=== PATIENT | female | born 1980 | race Caucasian/White ===

== ENCOUNTER → 2017-12-29 11:09 | Outpatient (CLI) | payer OTHER, SELFPAY ==
[2018-01-04 08:22] LABS: HPV HC, High Risk Negative (Negative)
[2018-01-04 08:23] LABS: HPV Reflexed? YES, CHARGE PATIENT
== END ==
PROVIDERS: Visit Provider Obstetrics & Gynecology
DX: Z12.4 Encounter for screening for malignant neoplasm of cervix (principal)
CPT/HCPCS: 87624; 88175; G0145

== ENCOUNTER → 2018-07-20 13:43 | Outpatient (CLI) | payer OTHER, SELFPAY ==
[2018-07-24 08:58] LABS: HPV Reflexed? NOT INDICATED
== END ==
PROVIDERS: Referring Provider Obstetrics & Gynecology; Visit Provider Obstetrics & Gynecology
DX: R87.610 Atypical squamous cells of undetermined significance on cytologic smear of cervix (ASC-US) (principal)
CPT/HCPCS: 88175; G0145

== ENCOUNTER 2019-06-09 11:38 | Emergency (ER) | payer OTHER, SELFPAY ==
[2019-06-09 11:39] VITALS: BP 129/93; PULSE 92; RESP 17; TEMP 37.2; O2SAT 97; BMI 35.0
--- NOTE | 2019-06-09 11:44 | EKG12_ITS ---
Test Reason : DYSRHYTHMIA Blood Pressure : / mmHG Vent. Rate : 077 BPM Atrial Rate : 077 BPM P-R Int : 136 ms QRS Dur : 084 ms QT Int : 366 ms P-R-T Axes : 038 019 023 degrees QTc Int : 414 ms Normal sinus rhythm with sinus arrhythmia Normal ECG Confirmed by MARIEL SARGENT, SMITHA ([id number]), restaurant expeditor CARYL SANFORD ([id number]) on 06/12/2019 10:44:06 AM Referred By: PARUL Confirmed By:SMITHA FLOYD MD
--- NOTE | 2019-06-09 12:11 | RAD_ITS ---
STUDY: X-RAY CHEST REASON FOR EXAM: Female, 39 years old. Shortness of breath/dyspnea. Right upper chest pain. Recent surgery for thoracic outlet syndrome. TECHNIQUE: PA and lateral views of the chest. COMPARISON: None. FINDINGS: Small amount of air is seen in the right lower cervical region. An air-fluid level is seen. I suspect a small loculated hydropneumothorax in the right apex. Surgical clips are seen in the right apical region. Surgical clips are also seen in the left apical region from prior surgery. The lungs are clear and expanded. There is no demonstrated pleural abnormality. Normal size heart. Normal mediastinum and wilmer. Normal visualized pulmonary arteries. Normal visualized aortic arch and descending thoracic aorta. Normal visualized thoracic spine. There has been resection of the first ribs bilaterally. There is no demonstrated abnormality of the visualized soft tissue structures of the upper abdomen. RAD/Chest PA and Lateral IMPRESSION: Status post anterior resection of the right first rib with postoperative changes in the soft tissues. I suspect a loculated hydropneumothorax overlying the right apex. Remainder of examination is unremarkable. Electronically Signed: Iggy Hunt, at 12:47 EDT , Service support ,
--- NOTE | 2019-06-09 12:46 | ED.DCSUM_ITS ---
History of Present Illness Chief Complaint: Shortness of Breath Narrative: 39-year-old female postop day 4 from a right first rib removal for thoracic outlet syndrome at [facility]. She presents with shortness of breath that started on postoperative day 2. She spoke with her surgeon and was referred to the emergency department for imaging to rule out pneumothorax or possible pulmonary embolism. She denies lower examinee pain or swelling. She was only in the hospital 1 day. No prior history of pulmonary embolism. Current severity is moderate. Prior similar symptoms: No Recent Illness/Hospitalization: Yes Past Medical History - Allergies and Home Meds Allergies/Adverse Reactions: Allergies No Known Allergies Allergy (Verified 06/09/19 11:39) Primary Care Physician: Kasey Gore PA [Primary Care Provider] - Prior records reviewed: Yes Smoking Status: Never smoker Review of Systems General: Denies: Chills, Fever, Sweats Eyes: Denies: Visual changes - bilaterally, Diplopia ENT: Denies: Rhinorrhea, Sore throat Cardiovascular: Denies: Chest pain, Palpitations Respiratory: Reports: Dyspnea. Denies: Cough, Dyspnea on exertion Gastrointestinal: Denies: Abdominal pain, Nausea, Vomiting, Diarrhea, Melena, Hematochezia Genitourinary: Denies: Dysuria, Hematuria, Frequency Musculoskeletal: Denies: Back pain, Extremity Pain Skin: Denies: Rash, Wounds Neurological: Denies: Headache, Weakness, Numbness Physical Exam Vital Signs/Narrative: Vital Signs Temp Pulse Resp BP Pulse Ox 06/09/19 11:39 99.0 F 92 17 129/93 H 97 General: Well nourished, Well developed, No Acute Distress Head: Normocephalic, Atraumatic Eyes: Perrl, EOMI ENT: Moist mucous membranes, No rhinorrhea Neck: Supple, Nontender Cardiovascular: Regular rate, Regular rhythm, No murmurs, - - Right chest incision is clean, dry, intact. Respiratory: No distress, CTA bilaterally, Chest nontender Abdomen: Soft, Nontender, Nondistended, Normal bowel sounds Back: Nontender, Normal Inspection Extremities: Nontender, No edema Skin: Normal color, No rash Neurological: Alert, Oriented x3, Cranial nerves II-XII grossly intact, Normal Strength, Normal Sensation Psychological: Normal affect, Normal Mood Diagnostic/Tx/Re-eval - Medical Decision Making Chest x-ray revealed a questionable tiny apical pneumothorax. Labs are within normal limits. Subsequent CT angiogram was ordered to rule out pneumothorax and pulmonary embolism. There is no evidence of pulmonary embolism. No appreciable pneumothorax. Small pleural effusion noted on the right. I discussed the case with her surgeon at [facility] who was comfortable at discharge home and recommended close follow-up. She is feeling well on reexamination. ED Disposition - Plan for ED Patient: Disposition: Home or Assisted Living Diagnosis: Post-operative state, Right-sided chest pain, Pleural effusion, right Instructions: POST OP WOUND CHECK, Pain Referrals: Kasey Gore PA [Primary Care Provider] -
[2019-06-09 12:56] LABS: Absolute Lymphocyte Count 1.72 X10^3/uL (0.83-4.51); Absolute Neutrophil Count 6.1 X10^3/uL (2.0-7.7); Basophil# 0.04 X10^3/uL; Basophil% 0.5 % (0-1); Eosinophils% 2.3 % (0-5); Hematocrit 40.7 % (37-47); Hemoglobin 13.9 g/dL (12.0-15.0); Lymphocyte # 1.72 X10^3/ul (4.0); Lymphocyte % 19.8 % (19-41); Mean Corp Hgb Conc 34.2 g/dL (32-36); Mean Corpuscular Hgb 31.5 pg (27.0-32.0); Mean Corpuscular Volume 92.3 fL (81-99); Mean Platelet Vol. 8.4 fl (6.2-12.0); Monocyte# 0.59 X10^3/uL; Monocyte% 6.8 % (0-10); NRBC Flagged by Analyzer 0 % (0-5); Neutrophil % 70.3 % (47-70); Platelet Count 291 K/mm3 (150-450); RBC Distribution Width CV 11.9 % (11.6-14.6); RBC Distribution Width SD 40.7 fl (35.1-43.9); Red Blood Count 4.41 M/mm3 (4.2-5.4); White Blood Count 8.7 K/mm3 (4.4-11.0)
[2019-06-09] MEDS: 0.9% Normal Saline 1,000 ML 1000 ML IV (12:59)
[2019-06-09 13:00] VITALS: RESP 16; O2SAT 98
--- NOTE | 2019-06-09 13:10 | CT_ITS ---
STUDY: CTA CHEST REASON FOR EXAM: Female, 39 years old. Chest pain and shortness of breath. Recent right-sided rib resection for thoracic outlet syndrome. RADIATION DOSAGE (If Supplied By Facility): CTDIvol = ( 11.18 ) mGy, DLP = ( 512.88 ) mGycm TECHNIQUE: The examination was performed with the intravenous administration of IV 75mL Isovue-370 75mL. Post-processing of the angiographic images was performed, with multiplanar reformation and 3D reconstruction. Individualized dose optimization techniques were used for this CT. COMPARISON: Comparison is made with prior chest radiograph done earlier today. FINDINGS: Postsurgical changes are seen overlying the right upper hemithorax where small air bubbles are seen in keeping with recent resection of the rib. Minimal underlying pleural thickening. There is no evidence of pneumothorax. Small amount of air is also seen in the right axillary region. Normal enhancement of the main pulmonary artery and right and left pulmonary arteries. Normal enhancement of the bilateral peripheral pulmonary arteries. There is no demonstrated pulmonary embolism. Normal thoracic aorta and visualized great vessels. There is no demonstrated aortic dissection. Normal heart and pericardium. Normal mediastinum. Normal hilar regions. Normal visualized trachea and bronchi. The lungs are well expanded. Small right pleural effusion with right basilar atelectasis. Normal chest wall structures. Normal osseous structures. Normal visualized upper abdomen. CT/CTA Chest W/WO Contrast IMPRESSION: Small right pleural effusion with right basilar atelectasis. Postsurgical changes overlying the upper right hemithorax. There is no evidence of pneumothorax. Electronically Signed: Iggy Hunt, at 13:51 EDT , Service support ,
[2019-06-09 13:12] LABS: Anion Gap 4 (5-15); BUN 9 mg/dL (7-18); BUN/Creat Ratio 12.6 RATIO (10-20); Calcium,Total 9.6 mg/dL (8.5-10.1); Chloride 104 mmol/L (98-107); Creatinine, Serum 0.71 mg/dL (0.55-1.02); EST Glomerular Filtration Rate 97 mL/min (>60); Est Glom Filt Rate - Afr Amer 117 mL/min (>60); Estimated Creatinine Clearance 80.27 ml/min; Glucose 100 mg/dL (74-106); Potassium 4.1 mmol/L (3.5-5.1); Sodium Level 138 mmol/L (136-145)
[2019-06-09 14:37] VITALS: BP 129/84; PULSE 70; RESP 17; TEMP 37.3; O2SAT 98
[2019-06-09 14:40] VITALS: O2SAT 98
== END 2019-06-09 14:43 | disposition home or self-care (01) ==
PROVIDERS: Emergency Provider Emergency Medicine; Family Provider Physician Assistant; PCP Physician Assistant
DX: J90 Pleural effusion, not elsewhere classified (principal)
CPT/HCPCS: 71046; 71275; 80048; 85025; 93005; 94760; 99285; J7030; A4216

== ENCOUNTER → 2021-04-08 15:13 | Outpatient (CLI) | payer OTHER, SELFPAY ==
[2021-04-08 15:29] LABS: Absolute Neutrophil Count 4.4 X10^3/uL (2.0-7.7); Basophil# 0.03 X10^3/uL; Basophil% 0.4 % (0-1); Eosinophil# 0.06 X10^3/uL; Eosinophils% 0.8 % (0-5); Hematocrit 37.7 % (37-47); Hemoglobin 12.3 g/dL (12.0-15.0); Lymphocyte % 29.9 % (19-41); Mean Corp Hgb Conc 32.6 g/dL (32-36); Mean Corpuscular Hgb 29.2 pg (27.0-32.0); Mean Corpuscular Volume 89.5 fL (81-99); Mean Platelet Vol. 8.5 fl (6.2-12.0); Monocyte% 8.2 % (0-10); NRBC Flagged by Analyzer 0 % (0-5); Neutrophil # 4.44 X10^3/uL (2.7-7.7); Neutrophil % 60.3 % (47-70); Platelet Count 331 K/mm3 (150-450); RBC Distribution Width CV 12.7 % (11.6-14.6); RBC Distribution Width SD 41.7 fl (35.1-43.9); Red Blood Count 4.21 M/mm3 (4.2-5.4); White Blood Count 7.4 K/mm3 (4.4-11.0)
[2021-04-08 15:51] LABS: Cholesterol 193 mg/dL (200); Glucose 91 mg/dL (74-106); High Density Lipoprotein 64 mg/dL; Thyroid Stim Hormone (TSH) 2.16 uIU/mL (0.358-3.74); Triglycerides 165 mg/dL; Very Low Density Lipoprotein 33 mg/dL (5-40)
[2021-04-11 16:32] LABS: HPV APTIMA, High Risk Negative (Negative)
== END ==
PROVIDERS: PCP Physician Assistant; Referring Provider Obstetrics & Gynecology; Visit Provider Obstetrics & Gynecology
DX: Z12.4 Encounter for screening for malignant neoplasm of cervix (principal); N93.9 Abnormal uterine and vaginal bleeding, unspecified
CPT/HCPCS: 36415; 80061; 82947; 84443; 85025; 87624; 88175; G0145

== ENCOUNTER 2021-04-26 15:55 | Emergency (ER) | payer OTHER, SELFPAY ==
[2021-04-26 15:57] VITALS: BP 112/78; PULSE 110; RESP 18; TEMP 36.8; O2SAT 97; BMI 29.2
[2021-04-26 16:05] VITALS: O2SAT 96
[2021-04-26 16:11] VITALS: BP 119/79; PULSE 102; RESP 15; O2SAT 96
--- NOTE | 2021-04-26 16:26 | EDS_ITS ---
HPI History of Present Illness Chief Complaint: Shortness of Breath Informant: patient Onset/Context/Timing Onset: Days (Several) Context: gradual Timing: Continuous Quality: Positive for Dyspnea on exertion (And without) Current Severity: Mild Maximum Severity: Moderate Worsened by: Exertion and Coughing Relieved by: Rest Associated Symptoms cough Chest Pain: Positive for Continuous and Pleuritic (Central/midsternal) Narrative Narrative: Patient has had Covid symptoms for 10-11 days, she tested positive, she continues to feel worse. She has had vomiting and diarrhea with this illness and now she is having trouble keeping things down. She has not had a syncopal episode. She is having chest discomfort even when she is not coughing, it hurts more to breathe. Dyspnea in the last several days. She is healthy otherwise and does not have a history of asthma. No leg pain or swelling except for myalgias. Still having fevers up to 102 sometimes. She was unvaccinated. PFSH PFSH Medical History Non-smoker no medical history Home Medications ondansetron 8 mg PO Q8H PRN PRN #20 tab 04/26/21 [Rx Last Taken Unknown] Allergy/AdvReac Type Severity Reaction Status Date / Time No Known Allergies Allergy Verified 04/26/21 15:57 Family History (Updated 04/08/21 @ 14:31 by Delia Taylor) Father H/O bicuspid aortic valve Surgical History (Updated 04/08/21 @ 14:30 by Delia Taylor) History of thoracic surgery Social History Smoking Status: Never smoker alcohol intake: current details: social substance use type: does not use caffeine: Yes additional social history: [employer] - [employer]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 ED Constitutional Constitutional ED: Reports body ache(s), chills, fatigue, fever(s), headache(s) and malaise Eyes Eyes: Denies change in vision or diplopia ENT ENT ED: Denies rhinorrhea or sore throat Cardiovascular Cardiovascular: Denies chest pain or palpitations Respiratory/Chest Respiratory/Chest: Reports cough, dyspnea and dyspnea on exertion Gastrointestinal Gastrointestinal: Reports diarrhea, nausea and vomiting; Denies abdominal pain Genitourinary Genitourinary ED: Denies dysuria or hematuria Musculoskeletal Musculoskeletal: Denies back pain or neck pain Integumentary Denies abscess or rash Neurologic Neurologic: Reports headache(s); Denies paresthesias or weakness Psychiatric Psychiatric: Denies anxiety or suicidal thoughts EXAM Physical Exam Const Vital Signs: 04/26/21 15:57 04/26/21 16:05 04/26/21 16:11 Temperature 98.2 F Temperature Source Temporal Pulse Rate 110 H 102 H Respiratory Rate 18 15 Respiratory Effort Normal Respiratory Depth Normal Respiratory Pattern Normal Blood Pressure 112/78 119/79 Blood Pressure Mean 89 92 Pulse Ox 97 96 Oxygen Delivery Method Room Air Room Air Room Air 04/26/21 18:27 04/26/21 19:31 Temperature 97.8 F Temperature Source Temporal Pulse Rate 89 85 Respiratory Rate 22 H 16 Respiratory Effort Respiratory Depth Respiratory Pattern Blood Pressure 117/65 115/70 Blood Pressure Mean 82 85 Pulse Ox 96 96 Oxygen Delivery Method Room Air Room Air Positive well nourished and well developed Constitutional Narrative: no distress General Appearance ED: well developed and NAD HEENT Reports moist mucous membranes normocephalic and atraumatic Eyes PERRL and EOMs intact bilaterally Neck full ROM and supple Resp normal respiratory effort and clear to auscultation bilaterally Cardio regular rate, regular rhythm and no murmurs Rate: tachycardic GI non-tender and non-distended Auscultation: normoactive bowel sounds Palpation: soft Back/Spine no CVA tenderness General Back: other FROM Extremity normal to inspection and no calf tenderness General Extremety ED: Negative for edema, pulses abnormal or tenderness General Extremity: Negative for edema or pulses abnormal Neuro oriented x3, CN's II-XII intact bilaterally and no sensory deficits noted Sensorium / Orientation: awake and alert Motor Exam: strength 5/5 throughout Skin no rashes or lesions noted and no wounds MDM MDM MDM Narrative Medical decision making narrative: Patient was given IV fluids, Zofran, Toradol, she did feel much better. Her D-dimer was slightly elevated so we sent her for CT angiography of the chest, it was negative for pulmonary embolus, it is consistent with Covid pneumonia. Since her pulse ox has maintained 96-97% on room air, I reassured her she is safe for discharge home does not meet any criteria for advanced treatments nor does she meet criteria for monoclonal antibody infusion. Advised to continue watching her pulse ox at home and she was prescribed some Zofran to use as needed. Lab Data Attestation: I reviewed the patient's lab results. Labs: Laboratory Results - last 24 hr 04/26/21 04/26/21 04/26/21 16:49 16:49 16:49 WBC 3.7 L RBC 4.40 Hgb 12.8 Hct 38.1 MCV 86.6 MCH 29.1 MCHC 33.6 RDW Std Deviation 38.7 RDW Coeff of Jorge 12.1 Plt Count 243 MPV 9.1 Immature Gran % (Auto) 0.300 Neut % (Auto) 70.9 H Lymph % (Auto) 21.4 [place] % (Auto) 7.1 Eos % (Auto) 0.3 Baso % (Auto) 0.0 Absolute Neuts (auto) 2.6 Absolute Lymphs (auto) 0.78 L Nucleated RBC % 0 Differential Comment SCANNED D-Dimer Quant (PE/DVT) 0.85 H* Sodium 134 L Potassium 3.7 Chloride 99 Carbon Dioxide 28.0 Anion Gap 7 BUN 18 Creatinine 0.69 Estim Creat Clear Calc 85.72 Est GFR (MDRD) Af Amer 121 Est GFR (MDRD) Non-Af 100 BUN/Creatinine Ratio 26.2 H Glucose 100 Calcium 9.9 Troponin I High Sens 16 Radiography Diagnostic Testing: Radiology Impression Chest CTA 04/26/21 17:53 IMPRESSION: Findings compatible with Covid pneumonia. No evidence of acute pulmonary emboli to segmental level. Electronically Signed: Richar Xiong MD at 18:43 EDT Tel , Service support , Discharge Plan Triage Chief Complaint: Shortness of Breath Other Complaint: Cough Fever Complaint ED Provider: Curtis Llamas Dx/Rx/DC Orders Clinical Impression: Pneumonia due to 2019-nCoV Instructions: Coronavirus Disease 2019 (COVID-19): Caring for Yourself or Others Prescriptions: New ondansetron [ondansetron] 4 MG tablet 8 mg PO Q8H PRN PRN (Reason: Nausea) Qty: 20 RF: 0 Primary Care Provider: Kasey Gore Referrals: Kasey Gore, SAVAGE [Primary Care Provider] - As Needed Activity Restrictions/Additional Instructions: Try to get a home portable pulse oximeter and closely watch her oxygen levels periodically. If you stay below 90% for more than a minute or so, and/or you are feeling like your breathing is getting worse, return to the emergency department for further evaluation. Disposition Disposition: Home, Self Care
[2021-04-26] MEDS: Ondansetron 4 MG/2 ML Vial IV (16:45)
[2021-04-26] MEDS: 0.9% Normal Saline 1,000 ML 999 ML IV (16:45)
[2021-04-26] MEDS: Ketorolac 30 MG/ML Syringe IV (16:45)
[2021-04-26 17:03] LABS: Absolute Lymphocyte Count 0.78 X10^3/uL (0.83-4.51); Absolute Neutrophil Count 2.6 X10^3/uL (2.0-7.7); Eosinophil# 0.01 X10^3/uL; Eosinophils% 0.3 % (0-5); Hematocrit 38.1 % (37-47); Hemoglobin 12.8 g/dL (12.0-15.0); Lymphocyte # 0.78 X10^3/ul (0.83-4.51); Lymphocyte % 21.4 % (19-41); Mean Corp Hgb Conc 33.6 g/dL (32-36); Mean Corpuscular Hgb 29.1 pg (27.0-32.0); Mean Corpuscular Volume 86.6 fL (81-99); Mean Platelet Vol. 9.1 fl (6.2-12.0); Monocyte# 0.26 X10^3/uL; Monocyte% 7.1 % (0-10); NRBC Flagged by Analyzer 0 % (0-5); Neutrophil # 2.59 X10^3/uL (2.7-7.7); Neutrophil % 70.9 % (47-70); POSITIVE MORPHOLOGY YES; Platelet Count 243 K/mm3 (150-450); RBC Distribution Width CV 12.1 % (11.6-14.6); RBC Distribution Width SD 38.7 fl (35.1-43.9); White Blood Count 3.7 K/mm3 (4.4-11.0)
[2021-04-26 17:04] LABS: Differential Indicated SCAN CRITERIA MET
[2021-04-26 17:23] LABS: Anion Gap 7 (5-15); BUN 18 mg/dL (7-18); BUN/Creat Ratio 26.2 RATIO (10-20); Calcium,Total 9.9 mg/dL (8.5-10.1); Chloride 99 mmol/L (98-107); Creatinine, Serum 0.69 mg/dL (0.55-1.02); EST Glomerular Filtration Rate 100 mL/min (>60); Est Glom Filt Rate - Afr Amer 121 mL/min (>60); Estimated Creatinine Clearance 85.72 ml/min; Glucose 100 mg/dL (74-106); Potassium 3.7 mmol/L (3.5-5.1); Sodium Level 134 mmol/L (136-145); Troponin-I HS 16 pg/mL (3.0-54.0)
[2021-04-26 17:49] LABS: D-Dimer Quantitative (DVT/PE) 0.85 FEU/ug/m (0.27-0.49)
--- NOTE | 2021-04-26 17:53 | CT_ITS ---
INDICATION: covid, sob, elevated d-dimer EXAMINATION: CTA Chest WO/W Contrast Injection TECHNIQUE: Helically acquired images were obtained of the chest following administration of IV contrast. A radiation dose optimization technique was used for this scan. 3D postprocessing images including MIPS were reviewed. IV Contrast dosage and agent: IV 75mL Isovue-370 COMPARISON: None. FINDINGS: Lungs: Bilateral groundglass airspace opacities, most prevalent in the right upper and lower lobes. Mediastinum: The cardiomediastinal silhouette is not enlarged. No mediastinal, hilar or axillary adenopathy. The thoracic aorta is unremarkable. No obvious filling defect seen within the visualized pulmonary arteries. Pleura: Unremarkable Bones/Soft tissues: No suspicious osseous or soft tissue lesions Upper abdomen: No visualized abnormalities in the upper abdomen. CT/CTA Chest W/WO Contrast IMPRESSION: Findings compatible with Covid pneumonia. No evidence of acute pulmonary emboli to segmental level. Electronically Signed: Richar Xiong MD at 18:43 EDT Tel , Service support ,
[2021-04-26 18:23] LABS: Differential Comment SCANNED
[2021-04-26 18:27] VITALS: BP 117/65; PULSE 89; RESP 22; TEMP 36.6; O2SAT 96
[2021-04-26 19:31] VITALS: BP 115/70; PULSE 85; RESP 16; O2SAT 96
[2021-04-26 20:47] VITALS: BP 117/76; PULSE 81; RESP 16; O2SAT 95
--- NOTE | 2021-04-26 20:48 | ED.RN ---
THIS NURSE REVIEWED D/C INSTRUCTIONS WITH PT AND VISITOR. PT VERBALIZED UNDERSTANDING OF INSTRUCTIONS. IV D/C. IV CATHETER INTACT. PT TOLERATED WELL. PT DENIES FURTHER NEEDS OR QUESTIONS AT THIS TIME.
== END 2021-04-26 20:49 | disposition home or self-care (01) ==
PROVIDERS: Emergency Provider Emergency Medicine; PCP Physician Assistant
DX: U07.1 COVID-19 (principal); J12.82 Pneumonia due to coronavirus disease 2019
CPT/HCPCS: 71275; 80048; 84484; 85025; 85379; 96361; 96374; 96375; 99284; J7030; Q9967; J2405

== ENCOUNTER → 2021-05-09 09:29 | Outpatient (CLI) | payer OTHER, SELFPAY ==
--- NOTE | 2021-05-09 09:39 | US_ITS ---
STUDY: ULTRASOUND OF THE FEMALE PELVIS - COMPLETE REASON FOR EXAM: Female, 40 years old. Enlarged uterus LMP: 04/19/2021. TECHNIQUE: Transabdominal and Transvaginal TECHNICAL QUALITY: Adequate. COMPARISON: None. FINDINGS: The uterus is anteverted and is tilted to the right side of the pelvis. The uterus is enlarged measures 14.9 cm x 9.75 x 5.5 cm. Normal uterine cervix. The endometrium measures 9.2 mm in thickness, and is heterogeneous (striated). There is no demonstrated endometrial mass. Multiple fibroids are seen. The largest is in the lower uterine segment measuring 7 cm x 6.1 cm x 5.9 cm. I.U.D. - The patient does not have an I.U.D. The right ovary is visualized. The right ovary measures 2.7 cm x 2.6 x 1.4 cm. There is no right ovarian cyst or ovarian mass. There is no visualized right adnexal mass or complex lesion. There is normal arterial and normal venous vascularity. The left ovary is visualized. The left ovary measures 3.1 cm x 3.1 cm x 1.9 cm. There is no left ovarian cyst or ovarian mass. There is no visualized left adnexal mass or complex lesion. There is normal arterial and normal venous vascularity. There is no fluid in the cul-de-sac. The pre void volume of the bladder was 547 ml. US/Pelvic (Non ) IMPRESSION: Enlarged fibroid uterus. Electronically Signed: Iggy Hunt MD at 15:10 EDT , Service support ,
--- NOTE | 2021-05-09 09:39 | US_ITS ---
STUDY: ULTRASOUND OF THE FEMALE PELVIS - COMPLETE REASON FOR EXAM: Female, 40 years old. Enlarged uterus LMP: 04/19/2021. TECHNIQUE: Transabdominal and Transvaginal TECHNICAL QUALITY: Adequate. COMPARISON: None. FINDINGS: The uterus is anteverted and is tilted to the right side of the pelvis. The uterus is enlarged measures 14.9 cm x 9.75 x 5.5 cm. Normal uterine cervix. The endometrium measures 9.2 mm in thickness, and is heterogeneous (striated). There is no demonstrated endometrial mass. Multiple fibroids are seen. The largest is in the lower uterine segment measuring 7 cm x 6.1 cm x 5.9 cm. I.U.D. - The patient does not have an I.U.D. The right ovary is visualized. The right ovary measures 2.7 cm x 2.6 x 1.4 cm. There is no right ovarian cyst or ovarian mass. There is no visualized right adnexal mass or complex lesion. There is normal arterial and normal venous vascularity. The left ovary is visualized. The left ovary measures 3.1 cm x 3.1 cm x 1.9 cm. There is no left ovarian cyst or ovarian mass. There is no visualized left adnexal mass or complex lesion. There is normal arterial and normal venous vascularity. There is no fluid in the cul-de-sac. The pre void volume of the bladder was 547 ml. US/Transvaginal Non- IMPRESSION: Enlarged fibroid uterus. Electronically Signed: Iggy Hunt MD at 15:10 EDT , Service support ,
--- NOTE | 2021-05-09 10:41 | BI_ITS ---
MAMMOGRAPHY - BILATERAL SCREENING REASON FOR EXAM: Female, 40 years old. Routine annual screening examination. PERTINENT HISTORY: Non-contributory. TECHNIQUE: Digital bilateral breast corwin (3D mammographic acquisition) in the CC and MLO projections. 2-D mediolateral oblique (MLO) and craniocaudad (CC) views of both breasts were obtained. CAD: Full Field Digital Mammography with Computer Added Detection was performed. COMPARISON: None. Baseline examination. FINDINGS: Breast Composition: The breasts are heterogeneously dense, which may obscure small masses. There are no dominant masses or suspicious calcifications. No other significant abnormalities are identified. BI/SCRN MAMM (CAD)W/CORWIN BILAT IMPRESSION: Negative screening mammogram. Yearly followup mammogram recommended. (A) ASSESSMENT CATEGORY: BIRADS Category 1: Negative. A letter regarding these results will be sent to the patient by the facility within 30 days. Approximately 10% of breast cancers are not detected by mammography. A normal mammogram should not delay biopsy of a clinically suspicious abnormality. [id number] Electronically Signed: Iggy Hunt MD at 11:28 EDT , Service support ,
== END ==
PROVIDERS: PCP Physician Assistant; Referring Provider Obstetrics & Gynecology; Visit Provider Obstetrics & Gynecology
DX: N93.9 Abnormal uterine and vaginal bleeding, unspecified (principal); Z12.31 Encounter for screening mammogram for malignant neoplasm of breast
CPT/HCPCS: 76830; 76856; 77063; 77067

== ENCOUNTER → 2021-05-14 11:38 | Outpatient (CLI) | payer OTHER, SELFPAY ==
--- NOTE | 2021-05-14 | EMB_PTH ---
PATIENT: ELIZA VOGT LOC: [facility] U#:[id number] AGE/SX: 45/F ROOM: RE05/14/[address]: Dr. Catarina Trotter MD : 1980 BED: DIS: SPEC #: [id number] RECD: 05/14/21 11:33 STATUS: FILEMON DESAIAracelis #: [id number] JENNIFER: 05/14/21 00:[address]: Catarina Trotter DEPT: SURGICAL PATHOLOGY RECD BY: Duran Bonner ENTERED: 05/14/21 12:28 SP TYPE: ENDOM BX/C MARCI DR: SAVAGE Velazquez Tissues: Endometrium, NOS Procedures: Surgery Specimen Level IV HEADER OPERATION: Endometrial biopsy PRE-OP DIAGNOSIS: Abnormal uterine bleeding TISSUE SUBMITTED: Endometrial biopsy MICROSCOPIC DIAGNOSIS Endometrium, biopsy: Secretory endometrium. AM:josh 05/15/2021 MICROSCOPIC DESCRIPTION Slides are reviewed. GROSS DESCRIPTION Received is one container labeled with the patient's name and not further designated. The specimen consists of multiple irregular fragments of light live soft tissue that in aggregate measure 2 x 1 x <0.1 cm. The specimen is totally submitted in one cassette. / AM:josh 05/14/21 TC:5 CPT: 22052
== END ==
PROVIDERS: PCP Physician Assistant; Referring Provider Obstetrics & Gynecology; Visit Provider Obstetrics & Gynecology
DX: N93.9 Abnormal uterine and vaginal bleeding, unspecified (principal)
CPT/HCPCS: 88305

== ENCOUNTER 2021-07-15 07:02 | Day surgery (SDC) | payer OTHER, SELFPAY ==
[2021-07-15] VITALS (14 sets, daily range): BP systolic 96–138; BP diastolic 62–88; PULSE 52–84; RESP 12–18; TEMP 36.8–37.1; O2SAT 97–100; BMI 32.5
--- NOTE | 2021-07-15 | HYST_PTH ---
PATIENT: ELIZA VOGT LOC: [facility] [place] U#:[id number] AGE/SX: 41/F ROOM: RE07/15/[address]: Dr. Catarina Trotter MD : 1980 BED: DIS: 07/15/2021 SPEC #: [id number] RECD: 07/15/21 12:36 STATUS: FILEMON REAracelis #: [id number] JENNIFER: 07/15/21 00:[address]: Catarina Trotter DEPT: SURGICAL PATHOLOGY RECD BY: Jeanmarie Martinez ENTERED: 07/15/21 12:37 SP TYPE: HYSTERECT OTHR DR: SAVAGE Velazquez Tissues: Uterus, NOS Procedures: Surgery Specimen Level V HEADER OPERATION: ERAS, hysterectomy, LAVH, salpingectomy PRE-OP DIAGNOSIS: Enlarged uterus with fibroids TISSUE SUBMITTED: Uterus, cervix and bilateral fallopian tubes MICROSCOPIC DIAGNOSIS Uterus, cervix and bilateral fallopian tubes, hysterectomy and bilateral salpingectomy: Cervix ? focal mild acute and chronic inflammation and squamous metaplasia. Endometrium ? secretory endometrium. Myometrium ? intramural and submucosal leiomyomas (largest measuring 8 cm in greatest dimension). - Focal adenomyosis. Bilateral fallopian tubes - no pathologic diagnosis. SJ:josh 07/16/2021 MICROSCOPIC DESCRIPTION Slides are reviewed. GROSS DESCRIPTION Received in fixative is one container labeled with the patient's name and designated uterus, cervix and bilateral fallopian tubes. The specimen consists of a hysterectomy specimen consisting of uterus with cervix and bilateral fallopian tubes in multiple pieces. The largest piece consists of uterus with cervix and attached bilateral fallopian tubes. This piece is markedly distorted. The anterior and posterior wall shows focal area of defect, most likely site of detached pieces. The uterus with cervix and detached pieces of uterus weigh in aggregate 468 gm. The uterus with cervix measures 15 x 11 x 7 cm. The serosal surface is live, glistening. The ectocervical mucosa is unremarkable. The external os is oval and patulous in contour. The endocervical canal measures 5.5 cm in length and the endocervical mucosa is unremarkable. The endometrial cavity is compressed and measures 6 cm in length and 2 cm in width. The endometrium is hemorrhagic without any mass lesion and measures up to 0.2 cm in thickness. Sections of the uterine wall reveal multiple intramural and submucosal nodular masses. The largest mass measures 4 cm in greatest dimension. The detached pieces of uterus measure in aggregate 10 x 9 x 9 cm. One of the largest pieces appear to consist of nodular mass which measures 8 cm in greatest dimension. Sections of these masses reveal live whorled cut surfaces without areas of hemorrhage, necrosis or cystic degeneration. The uninvolved uterine wall measures up to 4 cm in thickness. The right fallopian tube measures 8 cm in length and 0.8 cm in diameter. The fimbrial end is identified. Sections reveal unremarkable cut surfaces. The left fallopian tube is similar appearance to right and measures 7 cm in length and 0.8 cm in diameter. Chairman & Ceo sections are submitted in 12 cassettes as follows: 1?- anterior cervix, 2 - posterior cervix, 3 & 4 - anterior uterine wall, 5 & 6 - posterior uterine wall, 7 & 8 - largest detached nodular mass, 9 - second largest nodular mass, 10 - smaller nodular masses, 11 - right fallopian tube, 12 - left fallopian tube. / MICHELLE:josh 07/15/21 TC:3 CPT: 29336
--- NOTE | 2021-07-15 05:36 | PCM.HP.BLA ---
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 Is patient in pain?: No Allergies No Known Allergies Allergy (Verified 04/26/21 15:57) Medications norethindrone acetate 5 mg tablet 5 mg PO .COMPLEX #30 tab 05/14/21 [Rx Confirmed 07/03/21] Is last menstrual period known: No Post menopausal: No Patient : No : No [facility] Medical History Non-smoker Surgical History History of thoracic surgery Family History Father H/O bicuspid aortic valve Social History Smoking Status: Never smoker alcohol intake: current details: social substance use type: does not use caffeine: Yes additional social history: [employer] [place] - [employer]- [employer] HPI [employer] Details: ELIZA VOGT is a 41 year old who presents for preop visit planning hysterectomy for enlarged uterus with fibroids. Female Reproductive History Menopausal Symptoms: No hot flashes, No night sweats, No difficulty concentrating and No change in libido Pregancy History 3 Elective abortions Hx Para 3 Spontaneous abortions Hx # Term Pregnancies Ectopic pregnancies Hx # Pregnancies Multiple births # of living children Past Pregnancies Del. Date Name GA/Weeks Outcome Route Bth Weight Infant Gen Labor Lgth Anesthesia Del Locatn Provider FOB Unknown 2005 Ameena 38 live - full term 6lbs 5.5oz Female Unknown 2008 Landrie 40 live - full term 7lbs 2oz Female Unknown 2011 Terri 41 live - full term 7lbs 7oz Female [facility], Delivery Date: [facility], Delivery Date: [facility],Delia ROS Const Constitutional: Denies fatigue, night sweats, weight gain or weight loss ENT ENT: Reports system reviewed and no additional complaints, except as documented Cardio Card: Denies chest pain Resp Resp: Denies cough or dyspnea GI GI: Reports as per HPI; Denies constipation, nausea or vomiting : Reports as per HPI; Denies hot flashes, nipple discharge, vaginal discharge, vaginal dryness, vaginal odor or vaginal pruritus Musc Musc: Denies arthralgias, back pain or muscle weakness Skin Skin/Breast: Denies alopecia, change in hair, dry skin, breast mass, breast pain, breast skin changes or nipple discharge Neuro Neuro: Reports system reviewed and no additional complaints, except as documented Psych Psych: Reports system reviewed and no additional complaints, except as documented; Denies change in libido or difficulty concentrating Endo Endo: Denies cold intolerance, excessive sweating, heat intolerance or polydipsia Abdelrahman/Lymph Hematologic/Lymphatic: Denies easy bleeding, Denies easy bruising and Denies lymphadenopathy Exam Const General: cooperative, healthy appearing, comfortable, no acute distress, well developed and well groomed Orientation: alert HENIL Head: normal to inspection and normocephalic Ears: hearing grossly normal bilaterally and external ears normal Nose: external nose normal Face and sinus: normal facial exam Neck Neck: normal visual inspection, full ROM and no lymphadenopathy Thyroid: thyroid normal Resp Auscultation: clear to auscultation bilaterally Cardio Rate: regular rate Rhythm: regular rhythm Heart Sounds: S1 normal and S2 normal GI Inspection: normal to inspection and non-distended Palpation: soft, no hepatosplenomegaly and no guarding General: bladder normal to palpation External Female Exam: normal external appearance, normal appearance of the urethra and no lesions Urethra: normal appearance of the urethra and normal palpation Speculum Exam - Vagina: normal appearance of the vagina and normal vaginal discharge Speculum Exam - Cervix: normal appearance of the cervix, no cervical discharge, no lesions and nontender Bimanual Exam- Vagina & Uterus: normal bimanual exam, bladder normal to palpation, No tender, non-tender, no cervical motion tenderness, enlarged (14 weeks size) and nodular Bimanual Exam- Adnexa, other: normal adnexae, no masses, normal and non-tender Pelvic Support: normal Musc Other: gross motor intact no deficits, full bilateral strength Skin General: no rashes or lesions noted Neuro General: patient alert, moves all extremities and no focal motor deficits Motor: muscle tone normal throughout Extrem General: normal to inspection and no pedal edema Psych Appearance: grossly normal Mental Status: mental status grossly normal Affect: normal affect Speech and Movement: speech and movement normal Attitude: cooperative Coding Level of Care Code No Charge Diagnoses Abnormal uterine bleeding N93.9 Enlarged uterus N85.2 Assessment and Plan Assessment and Plan (1) Abnormal uterine bleeding: Status: Acute Comment: sec fibroids failed progestin plan LAVHBS. emb done. Plan - Dr. Catarina Trotter MD: After discussing the patient's diagnosis and treatment plan options, patient wishes to proceed with surgical management. I have discussed with the patient the risks, benefits, and alternatives of the procedure which include but are not limited to risks of anesthesia, bleeding, infection, possible damage to bowel, bladder, or surrounding vasculature which could lead to additional surgery to evaluate any complications. Patient agrees to procedure and wishes to proceed. ACOG/uptodate references given for additional information regarding procedure. (2) Enlarged uterus: Status: Acute Comment: 15 cm with fibroids largest 7 cm. plan LAV BS UPDATE- I have seen the patient and performed any clinically relevant updates to the history and physical exam. Catarina Trotter MD
[2021-07-15] MEDS: Lactated Ringers 1,000 ML 40 ML IV (07:00)
--- NOTE | 2021-07-15 07:35 | OP.PCM_ITS ---
Report of Operation Date of Procedure: 07/15/21 Pre-Operative Diagnosis: AUB Post-Operative Diagnosis: same Surgery/Procedure Performed:: LAVHBS Description of Surgical Findings:: enlarged uterus multiple fibroids system auditor: Isa Bateman Type of Anesthesia: General Special Medications: none Specimen's removed: uterus, tubes Drains: yang Estimated Blood Loss (mL): 300 Fluids Replaced: crystalloid Description of Procedure: Patient received preoperative antibiotics and SCDs were on preoperatively. Patient was taken back to the operating room and placed in the dorsal lithotomy position. General anesthesia was induced and patient was prepped and draped in normal sterile fashion. Uterine manipulator was placed inside the uterus and Yang catheter placed in the bladder. The umbilicus was grasped with towel clamps and an intraumbilical incision was made after injecting with quarter percent Marcaine and a Veress needle entered into the abdomen confirmed to be intra-abdominal with a low opening pressure. Abdomen was insufflated with CO2 gas and the Veress needle removed and the 5 mm trocar was placed under direct visualization without complication. Right and left lower quadrants were transilluminated and injected with quarter percent Marcaine and 5 mm ports placed under direct visualization. Pelvis was well visualized see operative findings for additional information. Bilateral fallopian tubes were identified and transected with the LigaSure device across the mesosalpinx to the level of the utero-ovarian ligament which was also transected with the LigaSure device. The broad ligament was opened up by transecting the round ligament bilaterally and skeletonizing the uterine vessels bilaterally and creating a bladder flap using the LigaSure device. The uterine arteries were transected bilaterally with good visualization of the bladder and the ureters were seen to be inferior lateral to the operative area. Attention was then paid to the vaginal portion of the procedure and the cervix was grasped with Mal clamps and circumferentially injected with dilute vasopressin. A circumferential incision was made and the vaginal mucosa was mobilized off posteriorly and the cul-de-sac entered into sharply and a longneck speculum placed. The anterior cul-de-sac was then identified and entered into sharply. The uterosacral ligaments were clamped cut and suture ligated with 0 Monocryl bilaterally followed by the cardinal ligaments which were clamped cut and suture ligated bilaterally with 0 Monocryl. The uterus serially descended and was removed without difficulty. Pelvic sidewall pedicles were checked and noted to have excellent hemostasis. The vaginal mucosa was reapproximated incorporating the posterior peritoneum. This was reapproximated using 0 Vicryl [id number] ht sutures. Excellent hemostasis was noted. The pelvis and cul-de-sac were well visualized and no significant active bleeding noted. Pressure was taken down and the areas visualized and noted of excellent hemostasis. All ports were removed under direct visualization without complication and the abdomen was desufflated of air. The instruments were removed from the abdomen and the vaginal sweep was negative. Port sites on the abdomen were closed with 4-0 Monocryl interrupted sutures and Steri's and windows were applied. She was awoken and taken recovery in stable condition. Grafts/Implants Used: none Complications none Admit VTE Documentation VTE Present on Admission: No VTE Mechan Device Prophylaxis: SCD's VTE Pharm Prophylaxis ordered?: Yes Procedures Urinary/Genital [id number]: [id number] LAVH+BS/O >250gr Uterus
--- NOTE | 2021-07-15 07:35 | EX.PCM.DISCH ---
Discharge Instructions Diet Discharge Diet: No restrictions Activity May resume sexual activity in: 6 weeks Weight Bearing Status: Full weight bearing Dressing / Incision Call your doctor if your incision/area has: Continuous Slow Oozing, Sudden Increased Bleeding, Increased Pain/ Swelling, Increased Redness and Foul Smelling Discharge Call your doctor if you observe: Fever of 101 or Higher, Using more than 1 pad per hour, Shortness of breath, Chest pain and Uncontrolled pain Suture Line Care: Avoid Pulling/Pushing and Avoid Pinching/Bending Remove Dressing in: 1 week (if present) Cleanse incision/area with: Soap & Water and Keep Dressing Clean & Dry Follow Up Care Please Follow Up With: Catarina Trotter MD When: Call to make an appointment with your doctor for a postop visit in 2 and 6 weeks. Test Results: Test results from this visit will be discussed in further detail at your follow-up appointment, if applicable. Discharge Plan Admission Primary Reason for Your Visit: hysterectomy Attending Provider: Catarina Trotter Primary Care Provider: Kasey Gore Discharge Orders/Prescriptions Prescriptions: New oxycodone-acetaminophen [Percocet] 5-325 mg tablet 1 tab PO Q6H PRN (Reason: pain) 7 Days Qty: 20 RF: 0 naproxen [naproxen] 500 MG tablet 500 mg PO BID PRN PRN (Reason: Pain) Qty: 30 RF: 1 No Action multivitamin Capsule 1 cap PO DAILY RF: 0 Referrals / Follow Up: Kasey Gore PA [Primary Care Provider] - Disposition Disposition (needs filled in before D/C Order can be placed): Home, Self Care
[2021-07-15 07:41] LABS: Internal QC Validated? YES +Cl - CLEAR BKGD; Pregnancy, Urine Negative Negative
[2021-07-15 07:43] LABS: Absolute Lymphocyte Count 1.99 X10^3/uL (0.83-4.51); Absolute Neutrophil Count 2.7 X10^3/uL (2.0-7.7); Basophil# 0.03 X10^3/uL; Basophil% 0.6 % (0-1); Eosinophil# 0.09 X10^3/uL; Eosinophils% 1.7 % (0-5); Hematocrit 33.7 % (37-47); Hemoglobin 10.5 g/dL (12.0-15.0); Lymphocyte # 1.99 X10^3/ul (0.83-4.51); Lymphocyte % 36.6 % (19-41); Mean Corp Hgb Conc 31.2 g/dL (32-36); Mean Corpuscular Volume 86.6 fL (81-99); Mean Platelet Vol. 8.5 fl (6.2-12.0); Monocyte# 0.59 X10^3/uL; Monocyte% 10.9 % (0-10); NRBC Flagged by Analyzer 0 % (0-5); Neutrophil # 2.72 X10^3/uL (2.7-7.7); Platelet Count 354 K/mm3 (150-450); RBC Distribution Width CV 13.5 % (11.6-14.6); RBC Distribution Width SD 42.7 fl (35.1-43.9); Red Blood Count 3.89 M/mm3 (4.2-5.4); White Blood Count 5.4 K/mm3 (4.4-11.0)
[2021-07-15 07:45] LABS: Bedside Glucose 90 mg/dL (70-110)
[2021-07-15] MEDS: Phenazopyridine 95 MG Tablet 190 MG PO (07:47)
[2021-07-15] MEDS: Scopolamine 1mg/72hr Patch 1 PATCH TD (07:47)
[2021-07-15] MEDS: Celecoxib 200 MG Capsule 400 MG PO (07:47)
[2021-07-15] MEDS: Gabapentin 600 MG Tablet PO (07:48)
[2021-07-15] MEDS: dexAMETHasone 10 MG/ML Vial 8 MG IV (07:48)
[2021-07-15] MEDS: Enoxaparin 40 MG/0.4 ML Syringe SC (07:48)
[2021-07-15] MEDS: Acetaminophen 500 MG Tablet 1000 MG PO ×3 (07:49→18:12)
[2021-07-15 07:55] LABS: Magnesium 2.1 mg/dL (1.6-2.6)
[2021-07-15] MEDS: Cefazolin 2 GM in 0.9% Normal Saline 100 ML IV (09:06)
[2021-07-15] MEDS: Vasopressin 20 UNITS/ML Vial (10:34)
[2021-07-15] MEDS: Bupivacaine 0.25% 30 ML Vial (11:11)
[2021-07-15] MEDS: Lactated Ringers 1,000 ML 70 ML IV ×2 (12:00→14:59)
[2021-07-15] MEDS: Ondansetron 4 MG/2 ML Vial IV (12:25)
[2021-07-15] MEDS: Ketorolac 30 MG/ML Syringe IV (12:25)
[2021-07-15 18:21] LABS: Hematocrit 30.2 % (37-47); Hemoglobin 9.6 g/dL (12.0-15.0); Mean Corp Hgb Conc 31.8 g/dL (32-36); Mean Corpuscular Hgb 27.4 pg (27.0-32.0); Mean Corpuscular Volume 86.3 fL (81-99); Mean Platelet Vol. 8.3 fl (6.2-12.0); Platelet Count 305 K/mm3 (150-450); RBC Distribution Width CV 13.5 % (11.6-14.6); RBC Distribution Width SD 42.5 fl (35.1-43.9); White Blood Count 10.1 K/mm3 (4.4-11.0)
== END 2021-07-15 18:45 | disposition home or self-care (01) ==
LOC: SDC 07:07 → AC 07:08
PROVIDERS: Anesthesiology; PCP Physician Assistant; Referring Provider Obstetrics & Gynecology; Visit Provider Obstetrics & Gynecology
PROC: 0UT9FZZ Resection of Uterus, Via Natural or Artificial Opening With Percutaneous Endoscopic Assistance (ICD-10-PCS; CPT 58554; principal; 2021-07-15 08:35)
DX: N87.0 Mild cervical dysplasia (principal); D25.1 Intramural leiomyoma of uterus; D25.0 Submucous leiomyoma of uterus; N80.0 Endometriosis of uterus; N72 Inflammatory disease of cervix uteri
CPT/HCPCS: 00944; 58554; 81025; 82962; 83735; 85025; 85027; 86850; 86900; 86901; 88307; J7120; J2405

== ENCOUNTER 2021-07-20 11:02 | Emergency (ER) | payer OTHER, SELFPAY ==
[2021-07-20 11:03] VITALS: BP 129/82; PULSE 90; RESP 16; TEMP 36.7; O2SAT 100; BMI 31.8
[2021-07-20 11:11] VITALS: BP 129/82; PULSE 90; RESP 16; TEMP 36.7; O2SAT 100
--- NOTE | 2021-07-20 11:40 | CT_ITS ---
HISTORY: Abdominal pain, fever and vaginal swelling status post hysterectomy 07/15/2021. TECHNIQUE: Helically acquired images were obtained of the abdomen and pelvis with IV contrast. A radiation dose optimization technique was used for this scan. Contrast dosage and agent: 100 mL Isovue 300 IV/Gastrografin p.o. # of images incl. paperwork: 407. COMPARISON: US 05/09/2021. FINDINGS: LOWER CHEST: Lung bases clear. BOWEL: Bowel including appendix nondilated. No focal pericolonic inflammation. LIVER/SPLEEN/PANCREAS: Homogeneous. GALLBLADDER/BILIARY TREE: Gallbladder present. KIDNEYS/ADRENAL GLANDS: Unremarkable. VESSELS: No abdominal aortic aneurysm. PELVIC ORGANS: Interval hysterectomy with trace extraluminal air in the left anterior pelvis and anteriorly in the right lower quadrant. No significant postoperative fluid collection. 1.7 cm involuting right ovarian cyst with mild free fluid. ABDOMINAL WALL: Trace air, mild edema, and small lymph nodes in the left groin. BONES: Intact. CT/Abdomen/Pelvis WITH Contrast IMPRESSION: Interval hysterectomy with trace free air in the lower abdomen and pelvis. Mild edema and air in the left groin, also likely postoperative. Small involuting right ovarian cyst with mild free fluid in the pelvis. Individualized dose optimization techniques were used for this CT. at 1422 Reported and signed by: Gayle Villa MD Electronically Signed: Gayle Villa MD at 14:21 EST Tel , Service support ,
--- NOTE | 2021-07-20 11:41 | EDS_ITS ---
HPI History of Present Illness Chief Complaint: Wound Check Informant: patient Onset/Context/Timing Onset: Yesterday Current Severity: Mild Maximum Severity: Mild Narrative Narrative: Patient presents secondary to fever following a hysterectomy. She had a vaginal hysterectomy last July 15. Patient states last evening she developed a fever and again had fever this morning. T-max is 101.2. She states she has some vaginal tenderness and swelling that she noted last night. She has had yellow to pink-colored discharge that has been improving since the time of her surgery. She denies dysuria. She denies URI symptoms or cough. She did take ibuprofen prior to arrival. [facility] Medical History Alcohol use Chest pain Heartburn History of echocardiogram History of edema Migraine headache Non-smoker Home Medications multivitamin 1 cap PO DAILY 07/08/21 [History Last Taken Unknown] naproxen 500 mg PO BID PRN PRN #30 tab 07/15/21 [Rx Last Taken Unknown] oxycodone-acetaminophen [Percocet] 1 tab PO Q6H PRN 7 Days #20 tab 07/15/21 [Rx Last Taken Unknown] cephalexin 500 mg PO TID 7 Days #21 cap 07/20/21 [Rx Last Taken Unknown] Allergy/AdvReac Type Severity Reaction Status Date / Time No Known Allergies Allergy Verified 07/20/21 11:05 Family History Father H/O bicuspid aortic valve Surgical History History of thoracic surgery Hx of hysterectomy S/P laparoscopic assisted vaginal hysterectomy (LAVH) Social History Smoking Status: Never smoker alcohol intake: current details: social substance use type: does not use caffeine: Yes additional social history: [place] - [place] ROS ROS ED Constitutional Constitutional ED: Reports fever(s) Eyes Eyes: Denies blurry vision or change in vision ENT ENT ED: Denies rhinorrhea Cardiovascular Cardiovascular: Denies chest pain or palpitations Respiratory/Chest Respiratory/Chest: Denies cough or dyspnea Gastrointestinal Gastrointestinal: Denies abdominal pain, diarrhea or vomiting Genitourinary Genitourinary ED: Denies dysuria Neurologic Neurologic: Denies headache(s) Psychiatric Psychiatric: Denies anxiety or depression Endocrine Endocrinology: Denies polyuria Allergic/Immunologic Allergic/Immunologic ED: Denies urticaria EXAM Physical Exam Const Vital Signs: 07/20/21 11:03 07/20/21 11:11 Temperature 98.1 F 98.1 F Temperature Source Temporal Temporal Pulse Rate 90 90 Respiratory Rate 16 16 Blood Pressure 129/82 H 129/82 H Blood Pressure Mean 97 97 Pulse Ox 100 100 Oxygen Delivery Method Room Air Room Air Positive well nourished and well developed General Appearance ED: well developed HEENT Reports moist mucous membranes Eyes PERRL and EOMs intact bilaterally Neck supple Chest Wall inspection of chest normal and palpation of chest normal Resp normal respiratory effort and clear to auscultation bilaterally Cardio regular rate and regular rhythm GI GI Narrative: Abdomen soft nontender palpation. Laparoscopic surgical sites clean with no surrounding erythema. Narrative: Mild erythema and induration of the left labia majora. No fluctuance. Extremity normal to inspection Neuro oriented x3 Sensorium / Orientation: alert Psych mental status grossly normal Skin no rashes or lesions noted MDM MDM MDM Narrative Medical decision making narrative: Lab work, urinalysis, Covid swab obtained. CT with p.o. and IV contrast ordered. Patient declined anything for pain. Lab Data Attestation: I reviewed the patient's lab results. Labs: Laboratory Results - last 24 hr 07/20/21 07/20/21 07/20/21 11:55 11:55 12:05 WBC 7.3 RBC 3.75 L Hgb 10.2 L Hct 32.0 L MCV 85.3 MCH 27.2 MCHC 31.9 L RDW Std Deviation 41.6 RDW Coeff of Jorge 13.4 Plt Count 301 MPV 9.0 Immature Gran % (Auto) 0.600 Neut % (Auto) 81.4 H Lymph % (Auto) 11.7 L [place] % (Auto) 5.8 Eos % (Auto) 0.4 Baso % (Auto) 0.1 Absolute Neuts (auto) 5.9 Absolute Lymphs (auto) 0.85 Nucleated RBC % 0 Sodium 137 Potassium 3.8 Chloride 107 Carbon Dioxide 24.0 Anion Gap 6 BUN 8 Creatinine 0.72 Estim Creat Clear Calc 81.33 Est GFR (MDRD) Af Amer 115 Est GFR (MDRD) Non-Af 95 BUN/Creatinine Ratio 11.1 Glucose 91 Calcium 9.7 Urine Color Yellow Urine Clarity Clear Urine pH 6.5 Ur Specific [place] 1.010 Urine Protein Negative Urine Glucose (UA) Normal Urine Ketones Negative Urine Occult Blood 50 H Urine Nitrite Negative Urine Bilirubin Negative Urine Urobilinogen Normal Ur Leukocyte Esterase 25 H Urine RBC 0 SEEN Urine WBC 0 SEEN Ur Squamous Epith Cells 5-10 SEEN Urine Bacteria 1+ Urine Mucus 0 SEEN Radiography Diagnostic Testing: Clinical Impression(s) from Imaging Studies Abdomen/Pelvis CT 07/20/21 11:40 IMPRESSION: Interval hysterectomy with trace free air in the lower abdomen and pelvis. Mild edema and air in the left groin, also likely postoperative. Small involuting right ovarian cyst with mild free fluid in the pelvis. Individualized dose optimization techniques were used for this CT. at 1422 Reported and signed by: Gayle Villa MD Electronically Signed: Gayle Villa MD at 14:21 EST Tel , Service support , Treatment and Re-Evaluation Comments:: Lab work unremarkable. CT scan shows typical postoperative changes but no specific cause for fever. Test results discussed with Dr. Benoit. Patient be placed on Keflex 3 times daily and will follow up in the office this week. She is concerned that one of the retractors may have caused a hematoma in the left labia majora and wants to ensure it does not get infected. Discharge Plan Triage Chief Complaint: Wound Check ED Provider: Teodora Myles Dx/Rx/DC Orders Clinical Impression: Fever postop Instructions: ED FUO Adult, ED Post Op Wound Check, General Prescriptions: New cephalexin 500 mg capsule 500 mg PO TID 7 Days Qty: 21 RF: 0 No Action multivitamin Capsule 1 cap PO DAILY RF: 0 oxycodone-acetaminophen [Percocet] 5-325 mg tablet 1 tab PO Q6H PRN (Reason: pain) 7 Days Qty: 20 RF: 0 naproxen [naproxen] 500 MG tablet 500 mg PO BID PRN PRN (Reason: Pain) Qty: 30 RF: 1 Primary Care Provider: Kasey Gore Referrals: Catarina Trotter MD [STAFF PHYSICIAN] - 2 Days Kasey Gore PA [Primary Care Provider] - Disposition Disposition: Home, Self Care
[2021-07-20 12:03] LABS: Absolute Lymphocyte Count 0.85 X10^3/uL (0.83-4.51); Absolute Neutrophil Count 5.9 X10^3/uL (2.0-7.7); Basophil# 0.01 X10^3/uL; Basophil% 0.1 % (0-1); Eosinophil# 0.03 X10^3/uL; Eosinophils% 0.4 % (0-5); Hemoglobin 10.2 g/dL (12.0-15.0); Lymphocyte # 0.85 X10^3/ul (0.83-4.51); Lymphocyte % 11.7 % (19-41); Mean Corp Hgb Conc 31.9 g/dL (32-36); Mean Corpuscular Hgb 27.2 pg (27.0-32.0); Mean Corpuscular Volume 85.3 fL (81-99); Monocyte# 0.42 X10^3/uL; Monocyte% 5.8 % (0-10); NRBC Flagged by Analyzer 0 % (0-5); Neutrophil # 5.91 X10^3/uL (2.7-7.7); Neutrophil % 81.4 % (47-70); Platelet Count 301 K/mm3 (150-450); RBC Distribution Width CV 13.4 % (11.6-14.6); RBC Distribution Width SD 41.6 fl (35.1-43.9); Red Blood Count 3.75 M/mm3 (4.2-5.4); White Blood Count 7.3 K/mm3 (4.4-11.0)
[2021-07-20 12:12] LABS: Mucous, Urine 0 SEEN /hpf (<or=2+); Red Blood Cells-Urine 0 SEEN /hpf (0-5); White Blood Cells 0 SEEN /hpf (0-5)
[2021-07-20 12:15] LABS: Color, Urine Yellow (Yellow); Glucose, Dipstick Normal (Normal); Ketone-Dipstick Negative (Negative); Leukocyte Esterase-Dipstick 25 /ul (Negative); Nitrite-Dipstick Negative (Negative); Occult Blood-Urine 50 /ul (Negative); Protein-Dipstick Negative (Negative); Urine Bilirubin Dipstick Negative (Negative); Urine Clarity Clear (Clear); Urine Urobilinogen Normal (Normal); Urine pH 6.5 (5.0 - 8.0)
[2021-07-20 12:16] LABS: Anion Gap 6 (5-15); BUN 8 mg/dL (7-18); BUN/Creat Ratio 11.1 RATIO (10-20); Calcium,Total 9.7 mg/dL (8.5-10.1); Chloride 107 mmol/L (98-107); Creatinine, Serum 0.72 mg/dL (0.55-1.02); EST Glomerular Filtration Rate 95 mL/min (>60); Est Glom Filt Rate - Afr Amer 115 mL/min (>60); Estimated Creatinine Clearance 81.33 ml/min; Glucose 91 mg/dL (74-106); Potassium 3.8 mmol/L (3.5-5.1); Sodium Level 137 mmol/L (136-145)
[2021-07-20] MEDS: 0.9% Normal Saline 1,000 ML 150 ML IV (12:20)
[2021-07-20 12:27] LABS: Bacteria 1+ /hpf (None Seen); Squamous Epithelial Cells - UA 5-10 SEEN /hpf (5-10)
[2021-07-20] MEDS: Cephalexin 250 MG Capsule 500 MG PO (14:58)
[2021-07-20 14:59] VITALS: TEMP 38.2
== END 2021-07-20 14:59 | disposition home or self-care (01) ==
PROVIDERS: Emergency Provider Emergency Medicine; PCP Physician Assistant
DX: R50.82 Postprocedural fever (principal)
CPT/HCPCS: 74177; 80048; 81001; 85025; 87426; 96360; 96361; 99284; J7030; Q9967; A4216

== ENCOUNTER → 2021-07-22 10:43 | Outpatient (CLI) | payer OTHER, SELFPAY ==
[2021-07-22 11:12] LABS: Absolute Lymphocyte Count 1.77 X10^3/uL (0.83-4.51); Absolute Neutrophil Count 5.2 X10^3/uL (2.0-7.7); Basophil# 0.03 X10^3/uL; Basophil% 0.4 % (0-1); Eosinophil# 0.23 X10^3/uL; Eosinophils% 2.9 % (0-5); Hematocrit 31.9 % (37-47); Hemoglobin 10.2 g/dL (12.0-15.0); Lymphocyte # 1.77 X10^3/ul (0.83-4.51); Lymphocyte % 22.3 % (19-41); Mean Corpuscular Hgb 27.1 pg (27.0-32.0); Mean Corpuscular Volume 84.8 fL (81-99); Mean Platelet Vol. 8.5 fl (6.2-12.0); Monocyte# 0.69 X10^3/uL; Monocyte% 8.7 % (0-10); NRBC Flagged by Analyzer 0 % (0-5); Neutrophil # 5.19 X10^3/uL (2.7-7.7); Neutrophil % 65.4 % (47-70); Platelet Count 290 K/mm3 (150-450); RBC Distribution Width CV 13.3 % (11.6-14.6); RBC Distribution Width SD 41.3 fl (35.1-43.9); Red Blood Count 3.76 M/mm3 (4.2-5.4); White Blood Count 7.9 K/mm3 (4.4-11.0)
[2021-07-23 09:35] LABS: HSV 1 IgG < 0.91 index (0.00-0.90); HSV 2 IgG < 0.91 index (0.00-0.90)
== END ==
PROVIDERS: PCP Physician Assistant; Referring Provider Obstetrics & Gynecology; Visit Provider Obstetrics & Gynecology
DX: N76.2 Acute vulvitis (principal)
CPT/HCPCS: 36415; 85025; 86695; 86696; 87070; 87205

== ENCOUNTER → 2022-08-28 | Outpatient (CLI) | payer OTHER, SELFPAY ==
--- NOTE | 2022-08-28 07:50 | BI_ITS ---
MAMMOGRAPHY - BILATERAL SCREENING REASON FOR EXAM: Female, 42 years old. Routine annual screening examination. PERTINENT HISTORY: Non-contributory. TECHNIQUE: Digital bilateral breast corwin (3D mammographic acquisition) in the CC and MLO projections. 2-D mediolateral oblique (MLO) and craniocaudad (CC) views of both breasts were obtained. CAD: Full Field Digital Mammography with Computer Added Detection was performed. COMPARISON: Comparison is made with prior study of 05/09/2021. FINDINGS: Breast Composition: The breasts are extremely dense, which lowers the sensitivity of mammography. There are no dominant masses or suspicious calcifications. Stable small benign-appearing bilateral axillary lymph nodes. No other significant abnormalities are identified. There has been no significant change since the prior study. BI/SCRN MAMM (CAD)W/CORWIN BILAT IMPRESSION: Stable bilateral screening mammogram. Yearly follow-up mammogram recommended. (A) ASSESSMENT CATEGORY: BIRADS Category 2: Benign. A letter regarding these results will be sent to the patient by the facility within 30 days. Approximately 10% of breast cancers are not detected by mammography. A normal mammogram should not delay biopsy of a clinically suspicious abnormality. [id number] Electronically Signed: Iggy Hunt MD at 9:10 EST ,
== END | disposition home or self-care (01) ==
LOC: OPBI 07:48
PROVIDERS: PCP Physician Assistant; Referring Provider Obstetrics & Gynecology; Visit Provider Obstetrics & Gynecology
DX: Z12.31 Encounter for screening mammogram for malignant neoplasm of breast (principal)
CPT/HCPCS: 77063; 77067

== ENCOUNTER → 2022-09-10 | Outpatient (CLI) | payer OTHER, SELFPAY ==
--- NOTE | 2022-09-10 15:08 | US_ITS ---
INDICATION: PELVIC PAIN EXAMINATION: US Pelvis Non OB Complete With Transvaginal Imaging TECHNIQUE: Transabdominal and transvaginal pelvic ultrasound was performed. Grayscale, spectral waveform, and color flow Doppler evaluation of the adnexa. COMPARISON: None. FINDINGS: UTERUS: Surgically absent. RIGHT OVARY: Measures 2.2 x 2.7 x 2.3 cm. Non-enlarged, normal echogenicity. There is normal arterial inflow and venous outflow present in the right ovary. LEFT OVARY: Measures 4.2 x 3.4 x 3.5 cm. Enlarged, normal echogenicity. There is normal arterial inflow and venous outflow present in the left ovary. There is a 3.3 x 3.2 x 3 cm complex cystic lesion in the left ovary. No internal vascularity. FREE FLUID: None. US/Pelvic (Non ) IMPRESSION: 3 cm complex cyst in the left ovary could represent a hemorrhagic cyst versus endometrioma. Recommend follow-up pelvic ultrasound in 6-8 weeks to document resolution. Electronically Signed: Richar Xiong MD at 17:15 EST ,
== END | disposition home or self-care (01) ==
LOC: US 15:07
PROVIDERS: PCP Physician Assistant; Referring Provider Obstetrics & Gynecology; Visit Provider Obstetrics & Gynecology
DX: R10.2 Pelvic and perineal pain (principal)
CPT/HCPCS: 76830; 76856; 93976

== ENCOUNTER → 2023-09-02 | Outpatient (CLI) | payer OTHER, SELFPAY ==
--- NOTE | 2023-09-02 07:39 | BI_ITS ---
MAMMOGRAPHY - BILATERAL SCREENING REASON FOR EXAM: Female, 43 years old. Routine annual screening examination. PERTINENT HISTORY: Non-contributory. TECHNIQUE: Digital bilateral breast corwin (3D mammographic acquisition) in the CC and MLO projections. 2-D mediolateral oblique (MLO) and craniocaudad (CC) views of both breasts were obtained. CAD: Full Field Digital Mammography with Computer Added Detection was performed. COMPARISON: Comparison is made with prior study dated August 28, 2022 and May 09, 2021. FINDINGS: Breast Composition: The breasts are extremely dense, which lowers the sensitivity of mammography. There are no dominant masses or suspicious calcifications. Surgical clips are seen in the left axilla. No other significant abnormalities are identified. There has been no significant change since the prior study. BI/SCRN MAMM (CAD)W/CORWIN BILAT IMPRESSION: Stable bilateral screening mammogram. Yearly follow-up mammogram recommended. (A) ASSESSMENT CATEGORY: BIRADS Category 2: Benign. A letter regarding these results will be sent to the patient by the facility within 30 days. Approximately 10% of breast cancers are not detected by mammography. A normal mammogram should not delay biopsy of a clinically suspicious abnormality. [id number] Electronically Signed: Iggy Hunt MD at 9:49 EST ,
--- OUTSIDE RECORDS SUMMARY | 2023-09-02 07:53 | XMS RPT_ITS | CCD ---
Author Name Unknown Address [address] [place] [address] Organization [facility] Care Team Providers Care Attendant [employer] Name Role Phone Robles, Magui Unavailable Unavailable Robles, Magui Unavailable Unavailable Robles, Magui Unavailable Unavailable Tita Francis Unavailable Unavailable Tita Francis Unavailable Unavailable Calderon, Kasey J Unavailable Unavailable CIARA, MELISSA Unavailable Unavailable CALDERON, KASEY Unavailable Unavailable HILLS, PAUL Admitting Unavailable HAZEL GREEN, PAUL Attending Unavailable HILLS, PAUL Primary Care Unavailable CALDERON, KASEY J Consulting Unavailable PROVIDER, UNKNOWN Consulting Unavailable HILLS, PAUL Admitting Unavailable HILLS, PAUL Attending Unavailable HILLS, PAUL Primary Care Unavailable CALDERON, KASEY J Consulting Unavailable PROVIDER, UNKNOWN Consulting Unavailable HILLS, PAUL Admitting Unavailable HILLS, PAUL Attending Unavailable HILLS, PAUL Primary Care Unavailable CALDERON, KASEY J Consulting Unavailable PROVIDER, UNKNOWN Consulting Unavailable Results Test Name Value Interpretation Reference Range Facil ity Encounters Encounter Date Encounter Type Care Provider Facility Start: 05-11-2019 End: 05-11-2019 Patient encounter procedure [facility] Start: 04-27-2019 End: 04-27-2019 Patient encounter procedure [facility] Start: 04-18-2019 End: 04-18-2019 Patient encounter procedure [facility] Start: 03-01-2018 End: 03-02-2018 Patient encounter MELISSA CIARA Facility:[facility] Start: 01-04-2018 End: 01-05-2018 Ambulatory Tita Francis Facility:[facility] Start: 12-01-2017 End: 12-02-2017 Ambulatory Magui Robles Facility:[facility] Payers Date Payer Category Payer Unknown [id number] 2017 Unknown 1980 Unknown [id number] 1980 Unknown [id number] 1980 Unknown [id number] Summary Purpose Family History No Family History Records FoundNo Family History Records FoundNo Family History Records FoundNo Family History Records FoundNo Family History Records Found Advance Directives No Advanced Directives Records FoundNo Advanced Directives Records FoundNo Advanced Directives Records FoundNo Advanced Directives Records FoundNo Advanced Directives Records Found Additional Source Comments INFORMATION SOURCE (unrecogn ized section and content) DATE CREATED AUTHOR AUTHOR'S ORGANIZ ATION 03/15/2018 [facility] DATE CREATED AUTHOR AUTHOR'S ORGANIZ ATION 05/17/2019 [facility] DATE CREATED AUTHOR AUTHOR'S ORGANIZ ATION 06/01/2019 [facility] DATE CREATED AUTHOR AUTHOR'S ORGANIZ ATION 06/15/2021 [facility] FOR RECORDS PERTAINING TO PATIENTS WHO ARE OR HAVE BEEN ENROLLED IN A CHEMICAL DEPENDENCY/SUBSTANCEABUSE PROGRAM, SOME INFORMATION MAY BE OMITTED. This clinical summary was aggregated from multiple sources. Caution should be exercised in using it in the provision of clinical care. This summary normalizes information from multiple sources, and as a consequence, information in this document may materially change the coding, format and clinical context of patient data. In addition, data may be omitted in some cases. CLINICAL DECISIONS SHOULD BE BASED ON THE PRIMARY CLINICAL RECORDS. [facility]. provides no warranty or guarantee of the accuracy or completeness of information in this document.
== END | disposition home or self-care (01) ==
LOC: OPBI 07:39
PROVIDERS: PCP Physician Assistant; Referring Provider Obstetrics & Gynecology; Visit Provider Obstetrics & Gynecology
DX: Z12.31 Encounter for screening mammogram for malignant neoplasm of breast (principal)
CPT/HCPCS: 77063; 77067

== ENCOUNTER → 2024-09-12 | Outpatient (CLI) | payer OTHER, SELFPAY ==
--- NOTE | 2024-09-12 07:29 | BI_ITS ---
PROCEDURE: SCRN MAMM (CAD)W/CORWIN BILAT REASON FOR EXAM: F, Age 44 y/o, presents for annual screening mammogram. No family history of breast cancer. TECHNIQUE: Bilateral screening digital breast tomosynthesis with 2D and 3D images. Computer aided detection. COMPARISON: 09/02/2023, 08/28/2022 FINDINGS: The breasts are heterogeneously dense which may obscure small masses. The mammogram demonstrates that the patient has dense breasts. Supplemental screening with whole breast ultrasound may be considered for further evaluation. No suspicious masses, areas of developing architectural distortion, or suspicious calcifications. BI/SCRN MAMM (CAD)W/CORWIN BILAT IMPRESSION: There is no mammographic evidence of malignancy in either breast.
== END | disposition home or self-care (01) ==
LOC: OPBI 07:19
PROVIDERS: PCP Physician Assistant; Referring Provider Obstetrics & Gynecology; Visit Provider Obstetrics & Gynecology
DX: Z12.31 Encounter for screening mammogram for malignant neoplasm of breast (principal)
CPT/HCPCS: 77063; 77067